=== PATIENT | female | born 1960 | race Asian ===

== ENCOUNTER 2018-01-23 08:03 | Day surgery (SDC) | payer OTHER ==
[2018-01-23] MEDS ORDERED: LIDOCAINE 2% (SDV) 5 ML INJ (10:14)
[2018-01-23] MEDS ORDERED: PROPOFOL 60 ML (10:14)
== END 2018-01-23 11:15 | disposition home or self-care (01) ==
LOC: GIL 08:03
DX: Z12.11 Encounter for screening for malignant neoplasm of colon (principal); K62.1 Rectal polyp; K57.30 Diverticulosis of large intestine without perforation or abscess without bleeding; K64.4 Residual hemorrhoidal skin tags; K29.50 Unspecified chronic gastritis without bleeding; K20.9 Esophagitis, unspecified; E11.9 Type 2 diabetes mellitus without complications; I10 Essential (primary) hypertension; Z79.84 Long term (current) use of oral hypoglycemic drugs
CPT/HCPCS: 43239; 82962; 88305; 88312